=== PATIENT | female | born 1995 | race Two or more races ===

== ENCOUNTER 2021-03-11 10:35 | Emergency (ER) | payer OTHER ==
[~2021-03-11] VITALS: Ht 165.1 cm; Wt 62.0 kg
[2021-03-11 13:24] VITALS: BP 125/74
== END 2021-03-11 13:25 ==
LOC: EMS 10:35
DX: Z11.1 Encounter for screening for respiratory tuberculosis (principal)
CPT/HCPCS: 71045; 99283